=== PATIENT | male | born 1940 | race Caucasian/White ===

== ENCOUNTER 2023-10-24 08:00 | Outpatient (RCR) | payer MEDICARE, OTHER, SELFPAY | END 2023-12-05 13:41 | disposition home or self-care (01) | LOC: HO.WCC 08:00 | PROVIDERS: PCP Internal Medicine; Visit Provider Physician Assistant | DX: S51.811A Laceration without foreign body of right forearm, initial encounter (principal); S20.411A Abrasion of right back wall of thorax, initial encounter; S50.812A Abrasion of left forearm, initial encounter; S80.212A Abrasion, left knee, initial encounter; L98.499 Non-pressure chronic ulcer of skin of other sites with unspecified severity; I10 Essential (primary) hypertension; C44.91 Basal cell carcinoma of skin, unspecified; W19.XXXA Unspecified fall, initial encounter; Y93.9 Activity, unspecified; Y92.9 Unspecified place or not applicable; Y99.9 Unspecified external cause status; Z87.891 Personal history of nicotine dependence; Z79.01 Long term (current) use of anticoagulants | CPT/HCPCS: 97597; 97602; 99212; 99213 ==